=== PATIENT | female | born 1985 | race Caucasian/White ===

== ENCOUNTER 2017-07-06 03:33 | Emergency (ER) | payer OTHER ==
[~2017-07-06] VITALS: Ht 172.7 cm; Wt 86.0 kg
[~2017-07-06 03:33] MED LIST: CLINDAMYCIN HC150 MG PO; HYDROCODON-ACE1 EAC7 PO; MELATONIN5 M3 PO; NOHOMEMEDS; PERCOCET 5/31 TABLET PO; PREDNISONE20 MG PO; ZYVOX600 MG PO
[2017-07-06 03:54] LABS: HEMATOCRIT 40.2 % (36.0-46.0); MCH 29.7 PG (29.0-34.0); MCHC 32.3 G/DL (30.0-36.0); MEAN PLAT.VOLUME 11.3 uM^3 (9.5-12.4); PLATELET COUNT 210 K/uL (156-360); RBC DIS.WIDTH-CV 13.7 % (11.8-14.6); RBC DIS.WIDTH-SD 46.3 % (39-53); RED BLOOD COUNT 4.37 M/uL (3.80-5.20); WHITE BLOOD COUNT 7.7 K/uL (4.1-10.2)
[2017-07-06 04:05] LABS: CHLORIDE 110 mEq/L (99-109); POTASSIUM 3.8 mEq/L (3.7-5.4); SODIUM 141 mEq/L (136-147)
[2017-07-06 04:07] LABS: GLUCOSE 102 mg/dL (70-99)
[2017-07-06 04:08] LABS: ANION GAP 10 MEQ/L (2-14)
[2017-07-06 04:09] LABS: TOTAL BILIRUBIN 0.4 mg/dL (0.0-1.0)
[2017-07-06 04:11] LABS: ALKALINE PHOSPHATASE 77 IU/L (3-129); GFR ESTIMATE (CALCULATED) > 59 mL/min/
[2017-07-06 04:12] LABS: UREA NITROGEN (BUN) 18 mg/dL (9-23)
[2017-07-06 04:20] LABS: QUANTITATIVE HCG < 4.0 MIU/ML
[2017-07-06 07:09] LABS: ADD MIUA? YES; BILIRUBIN NEGATIVE; BLOOD LARGE; COLOR YELLOW ((YELLOW)); GLUCOSE (STRIP) NEGATIVE; KETONES 5; LEUKOCYTES NEGATIVE; NITRITE NEGATIVE; PROTEIN (STRIP) 30; SPECIFIC GRAVITY 1.021 (1.000-1.030); UROBILINOGEN 0.2 MG/DL (0.2-1.0)
[2017-07-06] MEDS ORDERED: MOTRIN600 MG PO (07:33)
[2017-07-06 07:46] LABS: BACTERIA 1+ /HPF; CASTS NONE SEEN /LPF; CRYSTALS NONE SEEN; EPITHELIAL CELLS 1+ /HPF; MUCUS 1+ /LPF; RED BLOOD CELLS TNTC /HPF (0-5); UCUL ADDED? YES; WHITE BLOOD CELLS 0-5 /HPF (0-5)
[2017-07-06 07:47] VITALS: BP 100/82
== END 2017-07-06 07:49 | disposition home or self-care (01) ==
LOC: EME 03:33
DX: N20.1 Calculus of ureter (principal); F17.200 Nicotine dependence, unspecified, uncomplicated; L40.9 Psoriasis, unspecified; Z87.898 Personal history of other specified conditions
CPT/HCPCS: 74176; 80053; 81003; 84702; 85027; 87086; 99281; 99285; J1885; J2405; J7030

== ENCOUNTER 2018-05-18 14:41 | Emergency (ER) | payer OTHER ==
[~2018-05-18] VITALS: Ht 172.7 cm; Wt 71.4 kg
[~2018-05-18 14:41] MED LIST changes: +MOTRIN600 MG PO
[2018-05-18 15:33] LABS: APPEARANCE SL.HAZY ((CLEAR)); BILIRUBIN NEGATIVE; BLOOD LARGE; COLOR YELLOW ((YELLOW)); GLUCOSE (STRIP) NEGATIVE; KETONES NEGATIVE; LEUKOCYTES NEGATIVE; NITRITE NEGATIVE; PROTEIN (STRIP) 30; SPECIFIC GRAVITY 1.023 (1.000-1.030)
[2018-05-18 15:53] LABS: BACTERIA RARE /HPF; EPITHELIAL CELLS RARE /HPF; MUCUS 3+ /LPF; RED BLOOD CELLS TNTC /HPF (0-5)
[2018-05-18 15:54] LABS: CALCIUM OXALATE CRYSTALS 1+ /HPF
[2018-05-18 15:57] LABS: QUANTITATIVE HCG < 4.0 MIU/ML
[2018-05-18 16:05] LABS: CHLORIDE 107 MEQ/L (99-109); POTASSIUM 4.1 MEQ/L (3.7-5.4); SODIUM 140 MEQ/L (136-147)
[2018-05-18 16:11] LABS: GFR ESTIMATE (CALCULATED) > 59 mL/min/; GLUCOSE 98 mg/dL (70-99); UREA NITROGEN (BUN) 12 mg/dL (9-23)
[2018-05-18] MEDS ORDERED: MOTRIN800 MG PO (17:50)
[2018-05-18] MEDS ORDERED: ZOFRAN ODT8 MG PO (17:50)
[2018-05-18 18:01] VITALS: BP 130/75
== END 2018-05-18 18:19 | disposition home or self-care (01) ==
LOC: EME 14:41
PROVIDERS: Physician Assistant
DX: R10.30 Lower abdominal pain, unspecified (principal); R31.9 Hematuria, unspecified; Z87.442 Personal history of urinary calculi; Z86.14 Personal history of Methicillin resistant Staphylococcus aureus infection; Z88.2 Allergy status to sulfonamides; F17.200 Nicotine dependence, unspecified, uncomplicated
CPT/HCPCS: 74018; 80048; 81003; 84702; 99281; 99284